=== PATIENT | female | born 1995 | race American Indian/Alaskan Native ===

== ENCOUNTER 2017-12-26 20:58 | Emergency (ER) | payer OTHER ==
[2017-12-26 21:42] VITALS: TEMP 98.1
[2017-12-26] MEDS ORDERED: Sodium Chloride 0.9% 1,000 ML IV STA (21:51)
[2017-12-26 22:50] LABS: BASO # 0.1 K/uL (0.0-0.2); BASO % 0.8 % (0.0-2.0); EOS # 0.3 K/uL (0.0-0.7); HEMOGLOBIN 11.3 g/dL (12.0-16.0); LYMPH # 2.6 K/uL (1.0-4.3); LYMPH % 25.4 % (20.0-40.0); MEAN CELL VOLUME 89.4 fl (81.0-99.0); MEAN CORPUSCULAR HGB CONC 32.4 g/dL (33.0-37.0); MEAN PLATELET VOLUME 7.6 fl (7.2-11.7); MONO # 0.9 K/uL (0.0-0.8); MONO % 8.9 % (0.0-10.0); NEUT # 6.3 K/uL (1.8-7.0); NEUT % 61.9 % (50.0-75.0); NRBC % 0.2 % (0.0-0.0); RBC 3.89 Mil/uL (3.80-5.20); RED CELL DISTRIBUTION WIDTH 13.8 % (11.5-14.5); WHITE BLOOD COUNT 10.2 K/uL (4.8-10.8)
[2017-12-26 22:53] LABS: ALB/GLOB RATIO 1.1 (1.0-2.1); ALT/SGPT 27 U/L (9-52); AST/SGOT 21 U/L (14-36); BLOOD UREA NITROGEN 10 mg/dl (7-17); CALCIUM 8.9 mg/dL (8.4-10.2); GFR AFRICAN-AMERICAN > 60; GFR NON-AFRICAN AMERICAN > 60
[2017-12-26] MEDS ORDERED: DiphenhydrAMINE 50 mg/ml Inj IVP STA (23:12)
[2017-12-26] MEDS ORDERED: DiphenhydrAMINE 50 mg/ml Inj ONE (23:14)
--- NOTE | 2017-12-26 23:20 | ED PDOC ---
HPI: Headache Time Seen by Provider: 12/26/17 21:46 Chief Complaint (Nursing): Headache History Per: Patient Additional Complaint(s): Pt. states since this afternoon she's had a gradual L sided temporal headache associated without any alleviating or exacerbating factors. Pt. states she took Tylenol #3 without any relief. Denies head injury, trauma, fever, weakness, N/V/ D, light sensitivity. Past Medical History Reviewed: Historical Data, Nursing Documentation, Vital Signs Vital Signs: Last Vital Signs Temp 98.1 F 12/26/17 21:36 Pulse 70 12/26/17 21:36 Resp 16 12/26/17 21:36 BP 136/83 12/26/17 21:36 Pulse Ox 100 12/26/17 21:36 - Medical History PMH: Gastritis - Family History Family History: States: No Known Family Hx - Home Medications Home Medications: Ambulatory Orders Medication Instructions Recorded Famotidine [Pepcid] 20 mg PO DAILY #30 tab 03/29/17 Tobramycin 0.3% [Tobramycin 5 Ml] 2 drop OD QID #1 bottle 03/29/17 Azithromycin [Zithromax] 250 mg PO DAILY #6 tab 12/27/17 Metoclopramide [Reglan] 10 mg PO TID PRN #10 tab 12/27/17 Naproxen [Naprosyn] 500 mg PO BID PRN #10 tab 12/27/17 - Allergies Allergies/Adverse Reactions: Allergies Allergy/AdvReac Type Severity Reaction Status Date / Time No Known Allergies Allergy Verified 12/26/17 21:36 Review of Systems ROS Statement: Except As Marked, All Systems Reviewed And Found Negative Neurological: Positive for: Headache Physical Exam - Physical Exam Appears: Positive for: Well, Non-toxic, No Acute Distress Head Exam: Positive for: ATRAUMATIC, NORMAL INSPECTION, NORMOCEPHALIC Skin: Positive for: Normal Color, Warm. Negative for: Rash Eye Exam: Positive for: Normal appearance ENT: Positive for: Normal ENT Inspection, TM Is/Are (non-erythematous non- bulging b/l), Other (b/l ear canals clear) Neck: Positive for: Normal, Painless ROM Gastrointestinal/Abdominal: Positive for: Normal Exam, Soft. Negative for: Tenderness Back: Positive for: Normal Inspection Neurologic/Psych: Positive for: Alert, Oriented, Other (no temporal tenderness b /l). Negative for: Aphasia, Facial Droop - Laboratory Results Result Diagrams: 12/26/17 22:40 12/26/17 22:40 Urine POC: Negative - ECG O2 Sat by Pulse Oximetry: 100 - Progress ED Course And Treament: Labs, toradol 30mg IV, reglan 10mg IVPB, IV NS bolus x 1 ordered. 2315 Pt. developed shaking throughout the body but was awake, alert, and talking. States she feels nauseous. Benadryl 50mg IV, zofran 4mg ODT ordered. 2324 On re-evaluation, pt. report complete relief of all symptoms. Alert awake oriented x 3. 0005 On re-evaluation, pt. offers no complaints. Informed of CT results and agrees with plan. Of note, pt. finished a 10 day course of Amoxicillin last week. Disposition - Clinical Impression Clinical Impression: Acute headache, Sinusitis - Patient ED Disposition Is Patient to be Admitted: No - Disposition Referrals: [facility] [Outside] [facility] [Outside] Disposition: Routine/Home Disposition Time: 00:06 Condition: IMPROVED Additional Instructions: Follow up with PMD for further evaluation. Return to ED immediately if symptoms worsen. Prescriptions: Azithromycin [Zithromax] 250 mg PO DAILY #6 tab Metoclopramide [Reglan] 10 mg PO TID PRN #10 tab PRN Reason: headache or nausea Naproxen [Naprosyn] 500 mg PO BID PRN #10 tab PRN Reason: Pain Instructions: Acute Headache (ED), Sinusitis, Adult (DC), Headache, Adult Forms: [employer] (Chinese), [facility] ED School/Work Excuse
[2017-12-27 00:19] VITALS: BP 102/55; PULSE 88; RESP 18; O2SAT 98
--- NOTE | 2017-12-27 09:20 | CT ---
PROCEDURE: CT HEAD WITHOUT CONTRAST. HISTORY: headache COMPARISON: None available. TECHNIQUE: Axial computed tomography images were obtained through the head/brain without intravenous contrast. Radiation dose: Total exam DLP = 734 mGy-cm. This CT exam was performed using one or more of the following dose reduction techniques: Automated exposure control, adjustment of the mA and/or kV according to patient size, and/or use of iterative reconstruction technique. FINDINGS: HEMORRHAGE: No intracranial hemorrhage. BRAIN: No mass effect or edema. No atrophy or chronic microvascular ischemic changes. VENTRICLES: Unremarkable. No hydrocephalus. CALVARIUM: Unremarkable. PARANASAL SINUSES: Left ethmoidal sinus and central sphenoid sinus inflammatory changes. Of the visualized maxillary sinus, complete opacification noted. Possible central sphenoid sinus retention cyst MASTOID AIR CELLS: Unremarkable as visualized. No inflammatory changes. OTHER FINDINGS: None. IMPRESSION: No intracranial hemorrhage or mass effect. . Sinus inflammatory changes. Concordant results (preliminary interpretation) provided by [facility].
== END 2017-12-27 00:25 | disposition home or self-care (01) ==
LOC: H.ER 20:58
DX: R51 Headache (principal); J32.9 Chronic sinusitis, unspecified
CPT/HCPCS: 70450; 80053; 81025; 85025; 85651; 96361; 96374; 96375; 99285; J1200; J1885; J2765; J7030